=== PATIENT | female | born 1970 | race Caucasian/White ===

== ENCOUNTER → 2018-09-26 | Outpatient (CLI) | payer OTHER ==
[~2018-09-26] MED LIST: CALC-18 PO; IBUP-136 PO; LACT1CAP74 PO; LORA10CA3 PO; MULT1TAB64 PO; PROG100C PO
--- NOTE | 2018-09-26 17:45 | RADIOLOGY IMAGING REPORT ---
FACILITY: [facility] PATIENT NAME: Corrie Peterson : 1970 MR: [id number] V: [id number] EXAM DATE: ORDERING PHYSICIAN: ARI BLANCA TECHNOLOGIST: Location: [facility] [place] Patient: Corrie Peterson : 1970 Visit/Account:[id number] Date of Sevice: 09/26/2018 US VENOUS LOWER EXT RT Indication: 47-year-old female with right leg pain. Comparison: None. Procedure: There has been satisfactory grayscale as well as color flow and Doppler waveform analysis of the deep vessels of the right lower extremity. Findings: The common femoral, profunda femoral, superficial femoral, popliteal and infrapopliteal ves sels so far as visualized are compressible with grayscale imaging. All these vessels show flow with c olor Doppler imaging. Following calf compression there is normal directional augmentation of the Dopp ler waveform. The proximal right greater saphenous vein is compressible with grayscale imaging and color flow michelle sis shows normal flow. The Doppler waveform shows normal direction of flow. IMPRESSION: No findings of deep vein thrombosis in the right lower extremity. Report Dictated By: Glen Hightower MD at 09/26/2018 5:41 PM Report E-Signed By: Glen Hightower MD at 09/26/2018 5:42 PM WSN:[id number]
== END ==
LOC: US 15:58
PROVIDERS: ATTEND Obstetrics & Gynecology
DX: M25.561 Pain in right knee (principal); M79.661 Pain in right lower leg